=== PATIENT | male | born 1970 | race Caucasian/White ===

== ENCOUNTER 2019-01-15 19:27 | Inpatient (IN) | payer BC ==
[~2019-01-15] VITALS: Ht 188 cm; Wt 92.6 kg
[2019-01-15 19:54] LABS: BASOPHILS # (AUTO) 0.1 /CMM (0.0-0.2); BASOPHILS % (AUTO) 0.6 % (0.0-2.0); EOSINOPHILS % (AUTO) 2.3 % (0.0-6.0); HEMATOCRIT 54 % (39-51); HEMOGLOBIN 17.6 g/dL (13.5-17.5); LYMPHOCYTES # (AUTO) 2.7 /CMM (0.8-4.8); LYMPHOCYTES % (AUTO) 29.2 % (20.0-44.0); MEAN CORPUSCULAR HGB CONC 33 g/dl (31.0-36.0); MEAN CORPUSCULAR VOLUME 93 fL (80-96); MONOCYTES # (AUTO) 0.8 /CMM (0.1-1.30); MONOCYTES % (AUTO) 8.3 % (2.0-12.0); NEUTROPHILS # (AUTO) 5.5 /CMM (1.8-8.9); NEUTROPHILS % (AUTO) 59.6 % (43.0-81.0); PLATELET COUNT (AUTO) 202 /CMM (150-450); RED BLOOD CELL COUNT(AUTO) 5.84 MIL/uL (4.5-6.0); WHITE BLOOD COUNT (AUTO) 9.2 K/uL (4.3-11.0)
[2019-01-15] MEDS ORDERED: IV NS 0.9% 500 ML BAG IV ONE (20:00)
--- NOTE | 2019-01-15 20:01 | NUR ---
SHAHEEN FROM URGENT CARE. TO ER BED 9. AAOX4. NO RESP DISTRESS NOTED, BREATHING EVEN AND UNLABORED. BROUGHT FOR SYNCOPAL EPISODE WHILE AT THE URGENT CARE. PT REPORTS THAT HE EXERCISE THIS MORNING AND STARTED TO FEEL DIZZY AND WENT TO URGENT CARE. PER EMS REPORT, PT PASSED OUT FOR ABOUT 2MINS REPORTS. PTS BP WAS LOW BUT RESOLVED WINDOW GLASS CUTTER OFF. PT REPORTS THAT HE STARTED NORVASC 10MG ABOUT 1 1/2 WEEK AGO. PT IS ANXIOUS AND ADMITS TO BEING STRESSED. PT ON MONITOR. MD AT BEDSIDE FOR EVAL. IV LINE OBTAINED ON L AC 18. BLOOD DRAWN AND GIVEN TO LAB TECT AT BEDSIDE. EKG DONE. XRAY DONE. WILL CONTINUE TO MONITOR
[2019-01-15 20:02] LABS: CALCIUM, SERUM 9.2 mg/dL (8.5-10.1); CARBON DIOXIDE 29 mmol/L (21-32); CHLORIDE 103 mmol/L (98-107); CREATININE 1.7 mg/dL (0.6-1.3); GLUCOSE 110 mg/dL (74-106); POTASSIUM 4.5 mmol/L (3.5-5.1); SODIUM SERUM 140 mmol/L (136-145); UREA NITROGEN, BLOOD 17 mg/dL (7-18)
[2019-01-15 20:08] LABS: ALANINE AMINOTRANSFERASE 31 U/L (12-78); ALBUMIN 4.1 g/dL (3.4-5.0); ALKALINE PHOSPHATASE 50 U/L (46-116); ASPARTATE AMINOTRANSFERASE 21 U/L (15-37); BILIRUBIN,DIRECT 0.2 mg/dL (0.0-0.2); BILIRUBIN,TOTAL 0.9 mg/dL (0.2-1.0); TOTAL PROTEIN, SERUM 7.4 g/dL (6.4-8.2)
--- NOTE | 2019-01-15 20:31 | NUR ---
POSTURAL BP REPORTED TO CHRISTIAN SYLVESTER
[2019-01-15] MEDS ORDERED: IV 1/2NS 1000 ML 1,000 ML IV PRN (21:41)
--- NOTE | 2019-01-15 21:57 | NUR ---
ROOM 314-2
[2019-01-15] MEDS ORDERED: ZOLPIDEM TARTRATE 5 MG TABLET PO PRN (22:00)
[2019-01-15] MEDS ORDERED: MAGNESIUM HYDROXIDE 30 ML UDC PO PRN (22:00)
[2019-01-15] MEDS ORDERED: Z GUARD REMEDY 2 OZ OINT TP PRN (22:00)
[2019-01-15] MEDS ORDERED: ONDANSETRON HCL/PF 4 MG/2 ML VIAL IVP PRN (22:00)
[2019-01-15] MEDS ORDERED: MAG HYDROX/AL HYDROX/SIMETH 30 ML UDC PO PRN (22:00)
[2019-01-15] MEDS ORDERED: ACETAMINOPHEN 325 MG TABLET PO PRN (22:00)
--- NOTE | 2019-01-15 22:35 | NUR ---
REPORT GIVEN TO KIRBY ESCAMILLA FOR DEANA. PT TO 314-2
--- NOTE | 2019-01-15 22:35 | NUR ---
Nina wagner in ED - 01/15/19 at 2235 by RHILOMEN REPORT GIVEN TO KIRBY ESCAMILLA FOR DEANA. PT TO 314-2
--- NOTE | 2019-01-15 23:00 | NUR ---
WEATHER STRIP MECHANICLEATHER SHAVER NOTES RECEIVED PATIENT VIA GURNEY FROM ER ACCOMPANIED BY ER STAFF, ALERT AND ORIENTED X 4. VERBALLY RESPONSIVE AND ABLE TO FOLLOW INSTRUCTIONS. BREATHING REGULAR AND UNLABORED ON ROOM AIR. VITAL SIGNS TAKEN WITH ORTHOSTATIC BLOOD PRESSURES. BODY ASSESSMENT DONE, SKIN CLEAN AND INTACT. WEIGHT CHECKED ON BED SCALE. LEFT AC G18 IV LINE INTACT AND PATENT, FLUSHING WELL. STARTED ON 0.45%NS AT 75cc/hr, INFUSING WELL WITH NO BLEEDING AND S/S OF INFECTION/INFILTRATION NOTED. NO COMPLAINTS OF PAIN/DISCOMFORT REPORTED. DENIES FEELING DIZZY. BRP WITH MINIMAL ASSIST. BED LOW AND LOCKED, ON SEMI FOWLERS POSITION. WILL CONTINUE TO MONITOR. Addendum: 01/16/19 at 0039 by EILEEN VALDOVINOS RN ATTACHED TO TELE MONITOR WITH NORMAL SINUS RHYTHM AT 65bpm.
[2019-01-15 23:04] VITALS: BP 138/84
--- NOTE | 2019-01-15 23:16 | NUR ---
PT TRANSPORTED TO UNIT ON [facility] WITH EMT AND RN AT BEDSIDE W. ACLS PROTOCOL. NAD NOTED DURING TRANSPORT. PT [place] TO BED ON [facility]IT W/O ASSIST
[2019-01-16] MEDS ORDERED: ATOR10TA PO (00:04)
[2019-01-16] MEDS ORDERED: LOSA50TA39 PO (00:04)
[2019-01-16] MEDS ORDERED: ATEN50TA PO (00:04)
[2019-01-16] MEDS ORDERED: AMLO5TAB4 PO (00:04)
[2019-01-16 01:38] VITALS: BP_SYST 136; BP_SYST 138; BP_SYST 153; BP_DIAS 84; BP_DIAS 92; BP_DIAS 94
[2019-01-16 03:52] LABS: BASOPHILS # (AUTO) 0.1 /CMM (0.0-0.2); EOSINOPHILS % (AUTO) 1.9 % (0.0-6.0); HEMATOCRIT 52 % (39-51); HEMOGLOBIN 17.2 g/dL (13.5-17.5); LYMPHOCYTES # (AUTO) 2.3 /CMM (0.8-4.8); LYMPHOCYTES % (AUTO) 23.9 % (20.0-44.0); MEAN CORPUSCULAR HGB CONC 33 g/dl (31.0-36.0); MEAN CORPUSCULAR VOLUME 92 fL (80-96); MONOCYTES % (AUTO) 10.8 % (2.0-12.0); NEUTROPHILS % (AUTO) 62.4 % (43.0-81.0); PLATELET COUNT (AUTO) 187 /CMM (150-450); RED BLOOD CELL COUNT(AUTO) 5.67 MIL/uL (4.5-6.0); WHITE BLOOD COUNT (AUTO) 9.6 K/uL (4.3-11.0)
[2019-01-16 04:09] LABS: ALBUMIN 3.7 g/dL (3.4-5.0); CALCIUM, SERUM 8.4 mg/dL (8.5-10.1); CREATININE 1.4 mg/dL (0.6-1.3); MAGNESIUM 1.9 mg/dL (1.8-2.4); PHOSPHORUS 3.3 mg/dL (2.5-4.9); POTASSIUM 4.1 mmol/L (3.5-5.1); TOTAL PROTEIN, SERUM 6.7 g/dL (6.4-8.2)
[2019-01-16 04:15] LABS: THYROID STIMULATING HORMONE 0.536 uIU/mL (0.358-3.74)
[2019-01-16 04:56] VITALS: BP 129/81
--- NOTE | 2019-01-16 06:16 | NUR ---
FAMILY LIFE COUNSELOR CLOSING NOTES PATIENT IN BED, ALERT AND ORIENTED X 4. VERBALLY RESPONSIVE AND ABLE TO FOLLOW INSTRUCTIONS. BREATHING REGULAR AND UNLABORED ON ROOM AIR. LEFT AC G18 IV LINE INTACT AND PATENT, INFUSING WELL WITH NO BLEEDING AND S/S OF INFECTION/INFILTRATION NOTED. MAINTAINED ON TELE MONITOR WITH NORMAL SINUS RHYTHM AT 65bpm. NO COMPLAINTS OF PAIN/DISCOMFORT REPORTED WITHIN THE SHIFT. ORTHOSTATIC BLOOD PRESSURES TAKEN AND RECORDED. BRP WITH MINIMAL ASSIST. BED LOW AND LOCKED, ON SEMI FOWLERS POSITION. WILL ENDORSE TO MORNING SHIFT FOR AM LABS AND DEANA.
[2019-01-16 08:00] VITALS: BP 145/80
--- NOTE | 2019-01-16 08:00 | NUR ---
tele piece dyer: initial assessment received pt in bed awake, a/ox4. no c/o pain or any discomfort. pt wants to go home today. awaiting for md evaluation. instructed to call for assistance. will continue to monitor.
[2019-01-16 08:46] VITALS: BP 145/80
[2019-01-16] MEDS ORDERED: ATENOLOL 50 MG TABLET PO SCH (09:00)
[2019-01-16] MEDS ORDERED: AMLODIPINE BESYLATE 5 MG TABLET PO SCH (09:00)
--- NOTE | 2019-01-16 09:00 | NUR ---
tele volumetric weigher: cardio consult seen and examined by dr. martin with new orders. orders acknowledged. tele removed as ordered. okay to go home per dr. martin, awaiting md levine and order.
--- NOTE | 2019-01-16 11:00 | NUR ---
m/s gage designer: notes in bed resting comfortable. no c/o dizziness, chest pain, or any discomfort. instructed to call for assistance. will continue to monitor.
--- NOTE | 2019-01-16 13:10 | NUR ---
m/s hole digger: notes dr. hutson here and informed md that pt wants to go home and cleared by nitr[facility] lab technician this morning. md will see pt.
--- NOTE | 2019-01-16 14:30 | NUR ---
m/s yoga teacher: md visit seen and examined by dr. hutson with verbal order to d'c pt home. order read back and carried out.
--- NOTE | 2019-01-16 14:50 | NUR ---
m/s bulk station agent: notes discharge instructions given to pt and verbalized understanding. h/l removed with tip intact with no bleeding noted.
--- NOTE | 2019-01-16 15:00 | NUR ---
m/s powerhouse operator: discharged discharged home in stable condition accompanied by via private car with all d'c papers and belongings.
[2019-01-16] MEDS ORDERED: LOSARTAN POTASSIUM 50 MG TABLET PO SCH (22:00)
[2019-01-16] MEDS ORDERED: ATORVASTATIN 10 MG TABLET PO SCH (22:00)
== END 2019-01-16 15:00 | disposition home or self-care (01) | DRG 684 ==
LOC: ER 19:31 → TELE 22:22 → MED 01-16 08:36
PROVIDERS: ADMIT Internal Medicine; ATTEND Nurse Practitioner Acute Care
DX: N17.0 Acute kidney failure with tubular necrosis (principal); E86.9 Volume depletion, unspecified; R55 Syncope and collapse; N18.9 Chronic kidney disease, unspecified; I12.9 Hypertensive chronic kidney disease with stage 1 through stage 4 chronic kidney disease, or unspecified chronic kidney disease; T50.905A Adverse effect of unspecified drugs, medicaments and biological substances, initial encounter; Y92.009 Unspecified place in unspecified non-institutional (private) residence as the place of occurrence of the external cause
CPT/HCPCS: 36415; 71045-TC; 76770-TC; 80048-TC; 80053-TC; 80061-TC; 80076-TC; 83735-TC; 84100-TC; 84443-TC; 84484-TC; 85025-TC; 85730-TC; 87081-TC; 93307-TC; G0378; J3490; J7040